=== PATIENT | male | born 1970 | race Caucasian/White ===

== ENCOUNTER 2019-05-08 21:46 | Emergency (ER) | payer OTHER ==
[2019-05-09] MEDS: ACETAMINOPHEN 325 MG TAB PO
[2019-05-09] MEDS: IBUPROFEN 600 MG TAB PO
== END 2019-05-09 01:19 | disposition home or self-care (01) ==
LOC: FTE 05-09 01:19
DX: R05 Cough (principal); Z87.891 Personal history of nicotine dependence
CPT/HCPCS: 71046; 99283-25

== ENCOUNTER 2019-05-14 12:17 | Emergency (ER) | payer OTHER ==
[2019-05-14] MEDS: KETOROLAC 60 MG INJ IM (14:43)
== END 2019-05-14 15:56 | disposition home or self-care (01) ==
LOC: FTE 12:17
DX: J18.9 Pneumonia, unspecified organism (principal); Z87.891 Personal history of nicotine dependence
CPT/HCPCS: 71045; 96372; 99284-25

== ENCOUNTER 2019-05-18 09:53 | Emergency (ER) | payer OTHER ==
[2019-05-18] MEDS: DEXAMETHASONE 10 MG/ML 1 ML INJ IM (10:41)
[2019-05-18] MEDS: ALBUTEROL 0.083% (NEB) 2.5 MG/3 ML AMP NEB (10:48)
[2019-05-18 11:54] LABS: ADD MAN DIFF? NO
[2019-05-18 12:06] LABS: BASOPHIL # 0.1 10^3/ul (0.0-0.1); BASOPHILS % 1.3 % (0.0-2.0); EOSINOPHILS # 0.3 10^3/ul (0.0-0.5); EOSINOPHILS % 3.6 % (0.0-7.0); HEMATOCRIT 44.5 % (42.0-52.0); HEMOGLOBIN 14.2 g/dl (14.0-18.0); LYMPHOCYTES # 2.1 10^3/ul (0.8-2.9); LYMPHOCYTES % 25.1 % (15.0-51.0); MEAN CORPUSCULAR HEMOGLOBIN 27.6 pg (29.0-33.0); MEAN CORPUSCULAR HGB CONC 31.9 g/dl (32.0-37.0); MEAN CORPUSCULAR VOLUME 86.6 fl (82.0-101.0); MEAN PLATELET VOLUME 10.6 fl (7.4-10.4); MONOCYTE # 0.6 10^3/ul (0.3-0.9); MONOCYTES % 7.7 % (0.0-11.0); NEUTROPHILS % 60.1 % (39.0-77.0); PLATELET COUNT 339 10^3/UL (140-415); RED BLOOD COUNT 5.14 10^6/ul (4.70-6.10); RED CELL DISTRIBUTION WIDTH 12.9 % (11.5-14.5)
[2019-05-18 12:06] LABS: WHITE BLOOD COUNT 8.3 10^3/ul (4.8-10.8)
[2019-05-18 12:30] LABS: ANION GAP 7 (5-13); BLOOD UREA NITROGEN 20 mg/dl (7-20); CALCIUM 9.3 mg/dl (8.4-10.2); CARBON DIOXIDE 27 mmol/L (21-31); CHLORIDE 105 mmol/L (97-110); CREATININE 0.82 mg/dl (0.61-1.24); Estimated GFR > 60 mL/min (>60); GLUCOSE 106 mg/dl (70-220); POTASSIUM 4.7 mmol/L (3.5-5.1); SODIUM 139 mmol/L (135-144)
== END 2019-05-18 12:44 | disposition home or self-care (01) ==
LOC: FTE 09:53
DX: R05 Cough (principal); Z87.891 Personal history of nicotine dependence
CPT/HCPCS: 80048; 85025; 94664; 96372; 99284-25